=== PATIENT | male | born 1955 | race African-American/Black ===

== ENCOUNTER 2019-09-20 13:27 | Inpatient (IN) | payer MEDICARE, MEDICAID ==
[~2019-09-20] VITALS: Ht 190.5 cm; Wt 98.4 kg
[~2019-09-20 13:27] MED LIST: GABA-290 MT; HUM100IN SQ; INSU100V3 SUBCUT; KEPP500 MT; METF-414 MT
[2019-09-20] MEDS ORDERED: SODIUM CHLORIDE 0.9% 1,000 ML IV ONE ×2 (13:43→15:30)
[2019-09-20 14:54] LABS: BASOPHILS % 1.2 % (0.0-2.0); EOSINOPHILS % 2.9 % (0.0-5.0); HEMATOCRIT. 36.1 % (42.0-52.0); HEMOGLOBIN. 12.1 g/dL (14.0-18.0); LYMPHOCYTES % 17.8 % (20.0-50.0); MEAN CORPUSCULAR HEMOGLOBIN 28.8 pg (28.0-32.0); MEAN CORPUSCULAR VOLUME 86.1 fL (80.0-94.0); MONOCYTES % 12.1 % (2.0-8.0); PLATELET 145 x1000/uL (130-400); RED BLOOD CELL COUNT 4.19 mill/uL (4.7-6.1); RED CELL DISTRIBUTION WIDTH 17.2 % (11.6-14.6)
[2019-09-20 15:01] LABS: CHLORIDE 105 mEq/L (98-107)
[2019-09-20 15:06] LABS: ETHANOL BLOOD < 10 mg/dL
[2019-09-20 15:15] LABS: BETA HYDROXYBUTYRATE 0.2 mMol/L (0.0-0.3)
[2019-09-20 16:09] LABS: CLARITY URINE CLEAR (CLEAR); COLOR URINE YELLOW (YELLOW); KETONES URINE NEGATIVE (NEGATIVE); LEUKOCYTE ESTERASE URINE NEGATIVE (NEGATIVE); NITRITE URINE NEGATIVE (NEGATIVE); OCCULT BLOOD URINE NEGATIVE (NEGATIVE); PROTEIN URINE TRACE (NEGATIVE); SPECIFIC GRAVITY URINE 1.021 (1.005-1.030)
[2019-09-20 16:21] LABS: *AMPHETAMINES SCREEN URINE NEGATIVE (NEGATIVE); *BARBITURATES SCREEN URINE NEGATIVE (NEGATIVE); *BENZODIAZEPINES SCREEN URINE NEGATIVE (NEGATIVE); *COCAINE SCREEN URINE NEGATIVE (NEGATIVE)
[2019-09-20 16:22] LABS: METHADONE URINE SCREEN NEGATIVE (NEGATIVE); OPIATES URINE SCREEN NEGATIVE (NEGATIVE)
[2019-09-20 16:23] LABS: CANNABINOID URINE SCREEN NEGATIVE (NEGATIVE); PHENCYCLIDINE URINE SCREEN NEGATIVE (NEGATIVE)
[2019-09-20] MEDS: CLONIDINE 0.1MG TABLET PO PRN (20:27)
[2019-09-20] MEDS: INSULIN LISPRO (HIGH DOSE) 100 UNITS/ML SUBCUT SCH (20:27)
[2019-09-20] MEDS ORDERED: DEXTROSE 50% WATER 50ML SYRINGE IV PRN (20:30)
[2019-09-20 20:40] VITALS: BP 163/99
[2019-09-20 21:00] VITALS: BP 163/99
[2019-09-20] MEDS: BLOOD SUGAR DIAGNOSTIC STRIP TEST SCH (21:34)
[2019-09-21] VITALS (7 sets, daily range): BP systolic 140–176; BP diastolic 79–104
[2019-09-21] MEDS: BLOOD SUGAR DIAGNOSTIC STRIP TEST SCH ×4 (06:35→20:19)
[2019-09-21] MEDS: LEVETIRACETAM 500MG TABLET PO SCH ×2 (08:15→20:19)
[2019-09-21] MEDS: GABAPENTIN 300MG CAPSULE PO SCH ×3 (08:15→17:44)
[2019-09-21] MEDS: INSULIN LISPRO (HIGH DOSE) 100 UNITS/ML SUBCUT SCH ×4 (08:20→21:16)
[2019-09-21] MEDS ORDERED: MEDICATION NOT ON FORMULARY EA (Gabapentin 1 TAB) MT SCH (09:00)
[2019-09-21] MEDS ORDERED: LACTATED RINGERS 1,500 ML IV SCH (11:45)
[2019-09-21] MEDS: SODIUM CHLORIDE 0.9% 1,000 ML IV SCH (17:44)
[2019-09-21 17:45] LABS: FOLIC ACID (FOLATE) SERUM 14.6 ng/mL (>5.38)
[2019-09-21] MEDS: CLONIDINE 0.1MG TABLET PO PRN (20:19)
[2019-09-21 21:24] LABS: BASOPHILS % 1.1 % (0.0-2.0); EOSINOPHILS % 3.7 % (0.0-5.0); HEMOGLOBIN. 12.4 g/dL (14.0-18.0); LYMPHOCYTES % 23.8 % (20.0-50.0); MEAN CORPUSCULAR HEMOGLOBIN 29.2 pg (28.0-32.0); MEAN CORPUSCULAR VOLUME 86.7 fL (80.0-94.0); MEAN PLATELET VOLUME 9.1 fl (7.4-10.4); MONOCYTES % 12.5 % (2.0-8.0); NEUTROPHILS % 58.9 % (40.0-76.0); PLATELET 144 x1000/uL (130-400); RED BLOOD CELL COUNT 4.26 mill/uL (4.7-6.1); RED CELL DISTRIBUTION WIDTH 17.2 % (11.6-14.6)
[2019-09-21 21:36] LABS: CHLORIDE 111 mEq/L (98-107)
[2019-09-21 21:42] LABS: TOTAL IRON BINDING CAPACITY 332 ug/dL (250-450)
[2019-09-22] VITALS: BP 166/102
[2019-09-22 04:00] VITALS: BP 148/94
[2019-09-22] MEDS: BLOOD SUGAR DIAGNOSTIC STRIP TEST SCH ×4 (06:24→21:04)
[2019-09-22] MEDS: SODIUM CHLORIDE 0.9% 1,000 ML IV SCH ×2 (06:50→17:54)
[2019-09-22] MEDS: INSULIN LISPRO (HIGH DOSE) 100 UNITS/ML SUBCUT SCH ×4 (07:50→21:57)
[2019-09-22 08:00] VITALS: BP 155/95
[2019-09-22 08:07] LABS: BASOPHILS % 2.2 % (0.0-2.0); EOSINOPHILS % 4.2 % (0.0-5.0); HEMATOCRIT. 37.8 % (42.0-52.0); HEMOGLOBIN. 12.5 g/dL (14.0-18.0); LYMPHOCYTES % 22.8 % (20.0-50.0); MEAN CORPUSCULAR HEMOGLOBIN 28.4 pg (28.0-32.0); MEAN CORPUSCULAR VOLUME 86.4 fL (80.0-94.0); MEAN PLATELET VOLUME 9.7 fl (7.4-10.4); MONOCYTES % 10.7 % (2.0-8.0); NEUTROPHILS % 60.1 % (40.0-76.0); PLATELET 148 x1000/uL (130-400); RED BLOOD CELL COUNT 4.38 mill/uL (4.7-6.1); RED CELL DISTRIBUTION WIDTH 17.9 % (11.6-14.6)
[2019-09-22 08:27] LABS: CHLORIDE 110 mEq/L (98-107)
[2019-09-22] MEDS: LEVETIRACETAM 500MG TABLET PO SCH ×2 (09:08→21:04)
[2019-09-22] MEDS: GABAPENTIN 300MG CAPSULE PO SCH ×3 (09:08→17:47)
[2019-09-22 12:00] VITALS: BP 157/85
[2019-09-22] MEDS ORDERED: FERR325T6 MT (13:20)
[2019-09-22] MEDS ORDERED: AMLO5TAB88 MT (13:20)
[2019-09-22] MEDS ORDERED: IRON SUCROSE COMPLEX 100 MG/5 ML ML IV SCH ×2 (14:30→15:30)
[2019-09-22 16:00] VITALS: BP 140/85
[2019-09-22 20:00] VITALS: BP 140/77
[2019-09-23] VITALS (7 sets, daily range): BP systolic 132–162; BP diastolic 58–90
[2019-09-23] MEDS: BLOOD SUGAR DIAGNOSTIC STRIP TEST SCH ×4 (06:28→20:33)
[2019-09-23] MEDS: CLONIDINE 0.1MG TABLET PO PRN (08:20)
[2019-09-23] MEDS: LEVETIRACETAM 500MG TABLET PO SCH ×2 (08:20→20:32)
[2019-09-23] MEDS: GABAPENTIN 300MG CAPSULE PO SCH ×3 (08:21→17:36)
[2019-09-23] MEDS: INSULIN LISPRO (HIGH DOSE) 100 UNITS/ML SUBCUT SCH ×4 (08:22→21:24)
[2019-09-24] VITALS: BP 147/86
[2019-09-24 04:00] VITALS: BP 153/84
[2019-09-24] MEDS: INSULIN LISPRO (HIGH DOSE) 100 UNITS/ML SUBCUT SCH (07:50)
[2019-09-24 08:00] VITALS: BP 147/83
[2019-09-24] MEDS: BLOOD SUGAR DIAGNOSTIC STRIP TEST SCH (08:10)
[2019-09-24] MEDS: GABAPENTIN 300MG CAPSULE PO SCH (08:10)
[2019-09-24] MEDS: LEVETIRACETAM 500MG TABLET PO SCH (08:10)
== END 2019-09-24 08:53 | disposition home or self-care (01) | DRG 638 ==
LOC: ER 13:46 → 6EST 16:34 → EDBEDREQ 16:46 → EDBEDREQSVC 16:46 → ENRESERV 19:32
PROVIDERS: ADMIT Internal Medicine; ATTEND Internal Medicine
DX: E11.65 Type 2 diabetes mellitus with hyperglycemia (principal); S06.0X9A Concussion with loss of consciousness of unspecified duration, initial encounter; E11.36 Type 2 diabetes mellitus with diabetic cataract; I10 Essential (primary) hypertension; I25.10 Atherosclerotic heart disease of native coronary artery without angina pectoris; D72.821 Monocytosis (symptomatic); H54.62 Unqualified visual loss, left eye, normal vision right eye; M17.12 Unilateral primary osteoarthritis, left knee; W18.39XA Other fall on same level, initial encounter; G40.909 Epilepsy, unspecified, not intractable, without status epilepticus; E86.9 Volume depletion, unspecified; M48.02 Spinal stenosis, cervical region; D50.9 Iron deficiency anemia, unspecified; Z79.4 Long term (current) use of insulin; Z59.0 Homelessness; Z95.5 Presence of coronary angioplasty implant and graft; Z79.899 Other long term (current) drug therapy; Y93.89 Activity, other specified; Y92.89 Other specified places as the place of occurrence of the external cause; Y99.8 Other external cause status
CPT/HCPCS: 36415; 71045; 80048; 80053; 80305; 80320; 81003; 82010; 82607; 82728; 82746; 82962; 83036; 83540; 83550; 83880; 84484; 85025; 93005; 97162; 97165; 99285; J1815; J7030; G0480